=== PATIENT | male | born 1940 | race Caucasian/White ===

== ENCOUNTER 2016-08-02 02:37 | Day surgery (SDC) | payer MEDICARE ==
[~2016-08-02] VITALS: Ht 172.7 cm; Wt 102.0 kg
[~2016-08-02 02:37] MED LIST: ASCO1500 PO; ASPI81TA3 PO; ECHI350C PO; FOLI0.8C PO; GARL10002 PO; LIP40 PO; OMEG500C PO; PSYL798P2 PO; TUMERIC ROOT PO; UBID100C16 PO; VITA100T8 PO; [UNRECOGNIZED DRUG - CODE] PO
[2016-08-02] MEDS ORDERED: Sodium Chloride LOK Flush 10 mL Syringe IV PRN (06:00)
[2016-08-02] MEDS ORDERED: fentaNYL-PF 50 mCg/mL 2 mL Inj IVPUSH PRN (06:00)
[2016-08-02] MEDS ORDERED: 0.9% Sodium Chloride 1,000 ML IV SCH (06:00)
[2016-08-02 09:01] VITALS: BP 115/71; PULSE 93; RESP 16; O2SAT 96
[2016-08-02] MEDS ORDERED: LOSA50TA37 PO (09:01)
[2016-08-02 10:04] VITALS: BP 118/60; PULSE 78; RESP 16; O2SAT 95
[2016-08-02 10:14] VITALS: BP 82/60; PULSE 78; RESP 14; O2SAT 94
[2016-08-02 10:24] VITALS: BP 94/58; PULSE 86; RESP 14; O2SAT 95
[2016-08-02 10:32] VITALS: BP 125/71; PULSE 78; RESP 16; O2SAT 96
--- NOTE | 2016-08-02 10:42 | ENDO ---
[address] [address] ENDOSCOPY PROCEDURE PATIENT: DAYSI KENNEDY : 1940 MR#: [id number] ADMIT: 08/02/2016 JOB ID: [id number] DATE: 08/02/2016 PROCEDURE: Colonoscopy. INDICATION: Patient with personal history of colon polyps. Patient's ASA classification is two. Mallampati score is two. MEDICATIONS: 1. Versed 4 mg. 2. Fentanyl 100 mcg. INSTRUMENT USED: PCF-H180AL PREP QUALITY: Fair. PROCEDURE DETAILS: After informed consent was obtained, the patient was brought into the GI suite, where he was placed on oxygen via nasal cannula and monitored with continuous pulse oximeter, telemetry, and blood pressure monitoring. A time-out was performed. Then, he was placed in a left lateral decubitus position and medications were administered for sedation. Digital rectal exam was performed and was unremarkable. The colonoscope was then inserted into the rectum and advanced under direct visualization to the cecum, which was identified by the presence of the ileocecal valve and appendiceal orifice. Once the cecum was reached, the colonoscope was withdrawn back to the rectum. Mucosa and lumen were examined. In the rectum, retroflexion was performed. Following retroflexion, remaining air in the rectum was suctioned, and procedure was completed. FINDINGS: 1. In the transverse colon, there is a 3-4 mm sessile polyp that was removed with a cold snare. 2. In the descending colon, there were two polyps that measured approximately 4 mm each that were sessile that were removed with cold snare. 3. Internal hemorrhoids were noted as the scope was withdrawn through the anal canal. IMPRESSION: 1. Transverse colon polyp. 2. Two descending colon polyps. 3. Internal hemorrhoids. RECOMMENDATIONS: Repeat colonoscopy pending polyp pathology results. COMPLICATIONS: None. ESTIMATED BLOOD LOSS: Less than 5 mL.
--- NOTE | 2016-08-04 16:39 | PATH ---
SURGICAL PATHOLOGY Attending Physician:Shiela Gil CASE STATUS: Signed Out PATIENT NAME: DAYSI KENNEDY PID: [id number] : 1940 DATE COLLECTED:08/02/2016 17:21 SPECIMEN: 1: Colon, Polyp 2: Colon, Polyp CLINICAL HISTORY: 1. TRANSVERSE COLON POLYP 2. DESCENDING COLON POLYP X2 FINAL DIAGNOSIS: 1.TRANSVERSE COLON, POLYP, BIOPSY: TUBULAR ADENOMA; NEGATIVE FOR HIGH-GRADE DYSPLASIA. 2.DESCENDING COLON, POLYPS, BIOPSIES: PORTIONS OF SESSILE SERRATED ADENOMA X2. ICD10 K63.5 GROSS DESCRIPTION: The specimen is received in two formalin filled containers labeled with the patient's name. 1). The specimen is sublabeled "transverse colon polyp" and consists of a 0.3 x 0.2 x 0.2 CM portion of tissue which is entirely submitted in cassette 1A. 2). The specimen is sublabeled "descending colon polyps" and consists of 2 portions of tissue which aggregate to 0.3 x 0.3 x 0.2 CM. The specimen is entirely submitted in cassette 2A. 08/03/2016 [facility] MICRO DESCRIPTION: See diagnosis. ICD-9 CODES: CPT CODES: 1: 73128 2: 75801 Electronically Signed Out Debra Talbot MD [facility] [address], [place] [address] Technical component performed at [facility], [facility] [address], [place], [address]
== END 2016-08-02 23:59 | disposition home or self-care (01) ==
LOC: END 02:37
PROVIDERS: ATTEND Internal Medicine Gastroenterology
DX: Z12.11 Encounter for screening for malignant neoplasm of colon (principal); Z86.010 Personal history of colon polyps; Z80.0 Family history of malignant neoplasm of digestive organs; D12.3 Benign neoplasm of transverse colon; D12.4 Benign neoplasm of descending colon; K64.8 Other hemorrhoids; I10 Essential (primary) hypertension; E78.5 Hyperlipidemia, unspecified; Z79.82 Long term (current) use of aspirin
CPT/HCPCS: 45385; G0500; J2250; J3010; J7030